=== PATIENT | male | born 1975 | race Caucasian/White ===

== ENCOUNTER 2021-07-02 06:58 | Day surgery (SDC) | payer OTHER, SELFPAY ==
[~2021-07-02] VITALS: Ht 182.9 cm; Wt 137.9 kg
[2021-07-02] MEDS ORDERED: CEFAZOLIN 1 GM IVPB PREMIX 50 ML IV ONE (07:00)
[2021-07-02] MEDS ORDERED: INSULIN REGULAR, HUMAN 100 UNITS/ML, 10 ML VIAL (humuLIN R) ONE ×2 (08:27→12:48)
[2021-07-02] MEDS ORDERED: ONDANSETRON HCL 4 MG/2 ML VIAL ONE (09:16)
[2021-07-02] MEDS ORDERED: BUPIVACAINE /EPINEPHRINE/PF 0.25% 30 ML VIAL INJ ONE (09:16)
[2021-07-02] MEDS ORDERED: PROPOFOL 200MG/ 20ML VIAL (DIPRIVAN) IV ONE (09:16)
[2021-07-02] MEDS ORDERED: SUGAMMADEX SODIUM 200 MG/2 ML VIAL IV ONE (09:16)
[2021-07-02] MEDS ORDERED: IOHEXOL 300 mgI/mL, 50 mL INFUS..BTL IV ONE (09:16)
[2021-07-02] MEDS ORDERED: fentaNYL CITRATE 250 MCG/5 ML AMP ONE (09:16)
[2021-07-02] MEDS ORDERED: WATER FOR IRRIGATION,STERILE 1,000 ML IRRIG.SOLN IR ONE (09:16)
[2021-07-02] MEDS ORDERED: ISOFLURANE 15 MIN GAS INH ONE (09:16)
[2021-07-02] MEDS ORDERED: NS 1000 ML IV.SOLN IV ONE (09:16)
[2021-07-02] MEDS ORDERED: MIDAZOLAM HCL 5 MG/ML VIAL (VERSED) IV ONE (09:16)
[2021-07-02] MEDS ORDERED: KETOROLAC TROMETHAMINE 30 MG VIAL ONE (09:16)
[2021-07-02] MEDS ORDERED: ACETAMINOPHEN I.V. 1000 MG /100 ML IVPB PREMIX IV ONE (09:16)
[2021-07-02] MEDS ORDERED: ROCURONIUM BROMIDE 10 MG/ML (ZEMURON) ONE (09:16)
[2021-07-02] MEDS ORDERED: NS IRRIG SOLN 1000 ML IR ONE (09:16)
[2021-07-02] MEDS ORDERED: ceFAZolin SODIUM 1 GM VIAL ONE (09:16)
[2021-07-02] MEDS ORDERED: ACETAMINOPHEN I.V. 1000 MG 100 ML IV ONE (09:54)
[2021-07-02] MEDS ORDERED: MEPERIDINE HCL/PF 25 MG/ML DISP.SYRIN IVP PRN (10:15)
[2021-07-02] MEDS ORDERED: METOCLOPRAMIDE HCL 10 MG/2 ML VIAL IVP PRN (10:15)
[2021-07-02] MEDS ORDERED: MIDAZOLAM HCL 2 MG/2 ML VIAL (VERSED) IVP PRN (10:15)
[2021-07-02] MEDS ORDERED: LABETALOL 100 MG/ 20ML VIAL IVP PRN (10:15)
[2021-07-02] MEDS ORDERED: HYDROmorphone 1 MG/ML INJ. CARTRIDGE IVP PRN ×4 (10:15→14:30)
[2021-07-02] MEDS ORDERED: hydrALAZINE HCL 20 MG/ML VIAL IVP PRN (10:15)
[2021-07-02] MEDS ORDERED: NACL 0.9% 1,000 ML IV SCH (10:15)
[2021-07-02] MEDS ORDERED: BUPIVACAINE LIPOSOME/PF 266 MG/20 ML VIAL INFIL ONE (11:48)
[2021-07-02] MEDS ORDERED: D5/0.45 NS 1,000 ML IV SCH (12:45)
[2021-07-02] MEDS ORDERED: INSULIN REGULAR, HUMAN 100 UNITS/ML, 10 ML VIAL SUBCUT ONE (12:45)
[2021-07-02] MEDS ORDERED: HYDROcodone/ACETAMIN 5-325 MG TAB (NORCO/ VICODIN) PO PRN ×3 (12:45→14:30)
[2021-07-02] MEDS ORDERED: ACETAMINOPHEN 325 MG TABLET PO PRN (14:30)
[2021-07-02] MEDS ORDERED: ONDANSETRON HCL 4 MG/2 ML VIAL IVP PRN (14:30)
[2021-07-02] MEDS: D5/0.45 NS 1,000 ML IV SCH (14:30)
[2021-07-02 16:15] VITALS: BP_SYST 150
[2021-07-02 16:30] VITALS: BP_SYST 150
[2021-07-02 16:31] VITALS: BP_SYST 130
[2021-07-02] MEDS: HYDROcodone/ACETAMIN 5-325 MG TAB (NORCO/ VICODIN) PO PRN ×2 (16:50→18:32)
[2021-07-02] MEDS: CEFAZOLIN 1 GM IVPB PREMIX 50 ML IV SCH (17:21)
[2021-07-02] MEDS ORDERED: LIP80 PO (18:55)
[2021-07-02] MEDS ORDERED: LISI40TA13 PO (18:55)
[2021-07-02] MEDS ORDERED: METF-864 PO (18:55)
[2021-07-02] MEDS ORDERED: DICL75TA5 PO (18:55)
[2021-07-02] MEDS ORDERED: ACET-2634 PO (18:55)
[2021-07-02] MEDS ORDERED: DICLOFENAC SODIUM 25 MG TABLET.DR PO SCH (19:00)
[2021-07-02] MEDS ORDERED: ACETAMINOPHEN 500 MG TABLET PO PRN (19:00)
[2021-07-02 20:00] VITALS: BP_SYST 150; BP_SYST 155
[2021-07-02] MEDS ORDERED: ATORVASTATIN 20 MG TABLET PO SCH (21:00)
[2021-07-02] MEDS: FAMOTIDINE PF 20 MG/2 ML VIAL IVP SCH (21:30)
[2021-07-03] VITALS: BP_SYST 158
[2021-07-03] MEDS: D5/0.45 NS 1,000 ML IV SCH ×2 (00:30→08:56)
[2021-07-03] MEDS: CEFAZOLIN 1 GM IVPB PREMIX 50 ML IV SCH (01:49)
[2021-07-03 08:00] VITALS: BP_SYST 187
[2021-07-03] MEDS: FAMOTIDINE PF 20 MG/2 ML VIAL IVP SCH (08:52)
[2021-07-03] MEDS ORDERED: ENOXAPARIN SODIUM 30 MG/0.3 ML SYRINGE SUBCUT SCH (09:00)
[2021-07-03] MEDS ORDERED: lisinopriL 20 MG TABLET PO SCH (09:00)
[2021-07-03 12:13] VITALS: BP_SYST 147
[2021-07-03 13:57] VITALS: BP_SYST 147
== END 2021-07-03 17:00 | disposition home or self-care (01) ==
LOC: SDS 06:58 → SMU 06:58 → SDS 07-03 17:00
PROVIDERS: ATTEND Colon & Rectal Surgery
DX: K80.10 Calculus of gallbladder with chronic cholecystitis without obstruction (principal); K43.0 Incisional hernia with obstruction, without gangrene; G47.33 Obstructive sleep apnea (adult) (pediatric); I10 Essential (primary) hypertension; E11.9 Type 2 diabetes mellitus without complications; E66.01 Morbid (severe) obesity due to excess calories; Z99.89 Dependence on other enabling machines and devices; Z79.899 Other long term (current) drug therapy
CPT/HCPCS: 36415; 47563; 49561; 49568; 74300; 82948; 82962; 87426; 88302; 88304; 88307; C1727; C1751; C1758; C1781; C9290; J0131; J0690 ×2; J1170; J1650; J1885; J2250; J2405; J2704; J3010; J3490 ×3; J7030; Q9967; U0003; 76000; 88305; J1815